=== PATIENT | male | born 1940 | race Caucasian/White ===

== ENCOUNTER 2016-11-03 09:34 | Outpatient (CLI) | payer MEDICARE ==
[2016-11-03 10:51] LABS: ALT (SGPT) 24 U/L (0-55); AST (SGOT) 19 U/L (5-34); Alkaline Phosphatase 96 U/L (40-150); Anion Gap 15 mmol/L (10-20); BUN (Urea Nitrogen) 20 mg/dL (8.4-25.7); Bilirubin, Total 0.7 mg/dL (0.2-1.2); Calc. Creatinine Clearance 0 mL/min (70-130); Calcium 9.4 mg/dL (7.8-10.44); Carbon Dioxide 24 mmol/L (23-31); Chloride 109 mmol/L (98-107); Estimated GFR-MDRD 61; Globulin 2.6 g/dL (2.4-3.5); LDL Cholesterol, Calculated 107 mg/dL; Protein, Total 6.9 g/dL (5.8-8.1)
[2016-11-03 11:22] LABS: #Basophils 0.1 thou/uL (0.0-0.2); #Eosinphils 0.3 thou/uL (0.0-0.7); #Lymphocytes 2.7 thou/uL (1.20-3.40); #Monocytes 0.7 thou/uL (0.11-0.59); #Neutrophils 3.6 thou/uL (1.40-6.50); %Basophils 0.9 % (0.0-1.0); %Monocytes 9.1 % (0.0-10.0); Mean Platelet Volume 6.3 fL (7.4-10.4); Red Blood Cell (RBC) Count 4.73 mill/uL (4.70-6.10); White Blood Cell (WBC) Count 7.4 thou/uL (4.8-10.8)
== END 2016-11-03 09:35 ==
LOC: HPCALD 09:34
PROVIDERS: ATTEND Family Medicine
DX: Z12.5 Encounter for screening for malignant neoplasm of prostate (principal); E78.5 Hyperlipidemia, unspecified; E03.9 Hypothyroidism, unspecified; I10 Essential (primary) hypertension
CPT/HCPCS: 80053; 80061; 84439; 84443; 85025; G0103

== ENCOUNTER 2016-11-03 16:14 | Emergency (ER) | payer MEDICARE ==
[2016-11-03] MEDS ORDERED: Lidocaine 1% 20 ML MDV ONE (17:57)
[2016-11-03] MEDS ORDERED: Triple Antibiotic Oint 1 GM Packet ONE (18:14)
--- NOTE | 2016-11-03 18:45 | ERRECORD ---
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 Bleeding was controlled [employer]. No other injuries noted. HISTORIAN: History provided by patient. MECHANISM OF INJURY: Mechanism of injury: Cut or punctured by. LOCATION: Symptoms are localized, most severe in the dorsal surface of hand, most severe in the first finger, Radiation is not present, Right hand dominant. QUALITY: Pain is sharp in nature, described as shooting. SEVERITY: Maximum severity of symptoms moderate, Currently symptoms are moderate. TIME COURSE: Sudden onset of symptoms, just prior to arrival, There has been no change in the patient's symptoms over time. ASSOCIATED WITH: No associated alcohol use, No associated coolness to touch, No associated distal injury, No associated distal neuro complaint, No associated erythema, No associated fever, Associated with finger pain, Associated with open wounds, No associated proximal injury, No associated tingling, No associated weakness distal to injury, No associated wrist pain, Denies any other complaints. EXACERBATED BY: Patient's condition exacerbated by nothing. RELIEVED BY: Patient's condition relieved by nothing. ROS (ThuNov 04, 2016 07:00 MBRI) CONSTITUTIONAL: Negative constitutional review of systems, Historian denies chills, denies fever. MUSCULOSKELETAL: Injury to the hand. Denies other injuries or problems. SKIN: Negative skin review of systems, Historian denies skin changes. NEUROLOGIC: Negative neurologic review of systems, Historian denies focal weakness, denies sensory changes. HEMO/LYMPHATIC: Historian denies abnormal blood clotting, denies easy bruising. PAST MEDICAL HISTORY (16:49 KMOR) MEDICAL HISTORY: Flu vaccine up to date, Flu vaccine not up to date, Tetanus immunization up to date, Pneumococcal vaccine up to date, Past medical history includes history of hyperlipidemia, high cholesterol, Past medical history includes history of hypertension. Notes: Sleep apnea. head injury July 20, 2012 - in a coma for 14 days. MALE SURGICAL HISTORY: CARPAL TUNNEL may 2010. Surgical history of appendectomy, Surgical history of orthopedic surgery, NECK (2006) SHOUDLER (2006), BACK AND BILATERAL KNEE (2007 and 2008), Surgical history of prostatectomy, Surgical history of tonsillectomy. PSYCHIATRIC HISTORY: No previous psychiatric history, no &a-1R&a+25V*p+0X*[id number]*c152B*c15G*c2P*p-0X&a-25V&a+1RName: Gamaliel Osorio : 1940 M76 MedRec: [id number] AcctNum: [id number] Prepared: ThuNov 04, 2016 09:28 by Interface Page 1 of 3 pMD [facility] EMERGENCY RECORD history of suicidal ideations, No history of suicide attempts, No history of hallucinations, No history of homicidal ideations, No history of violence towards others.. SOCIAL HISTORY: Patient denies alcohol use, Patient denies drug use, Patient has no smoking history. FAMILY HISTORY: Sibling history of cardiac disease:, Treated with a pacemaker. KNOWN ALLERGIES No Known Drug Allergies No Known Drug Intolerances CURRENT MEDICATIONS (17:52 KMOR) gabapentin: CAPSULE : Strength - 300 mg : ORAL Patient Dose: 300 mg Oral 2 times a day. FLUoxetine: CAPSULE : Strength - 20 mg : ORAL Patient Dose: 20 mg Oral once a day (in the morning). simvastatin: TABLET : Strength - 20 mg : ORAL Patient Dose: 20 mg Oral once a day (in the morning). losartan: TABLET : Strength - 25 mg : ORAL Patient Dose: 25 mg Oral once a day (in the morning). Fish Oil: CAPSULE : Strength - 1,000 mg : ORAL Patient Dose: 1000 mg Oral 2 times a day. aspirin: TABLET : Strength - 81 mg : ORAL Patient Dose: 81 mg Oral once a day. Centrum Silver: TABLET : ORAL Patient Dose: 1 tab(s) Oral once a day. magnesium: TABLET : ORAL Patient Dose: 1 tab(s) Oral once a day. pantoprazole: TABLET, DELAYED RELEASE (ENTERIC COATED) : Strength - 40 mg : ORAL Patient Dose: 40 mg Oral As Needed. lutein: CAPSULE : Strength - 6 mg : ORAL Patient Dose: 1 tab(s) Oral once a day. ondansetron: TABLET,DISINTEGRATING : Strength - 4 mg : ORAL Patient Dose: 1 tab(s) Oral every 8 hours PRN. VITAL SIGNS (16:48 KMOR) VITAL SIGNS: BP: 135/65, Pulse: 56, Resp: 18, Temp: 98.2 (Oral), Pain: 0, O2 sat: 94 on Room Air, Time: 11/03/2016 16:48. &a-1R&a+25V*p+0X*[id number]*c152B*c15G*c2P*p-0X&a-25V&a+1RName: Gamaliel Osorio : 1940 M76 MedRec: [id number] AcctNum: [id number] Prepared: ThuNov 04, 2016 09:28 by Interface Page 2 of 3 pMD [facility] EMERGENCY RECORD PHYSICAL EXAM (ThuNov 04, 2016 07:00 MBRI) CONSTITUTIONAL: Vital Signs Reviewed, Nursing notes reviewed. HEAD: Head exam included findings of head atraumatic, normocephalic. UPPER EXTREMITY: Lower extremity range of motion normal, Radial pulse normal, capillary refill less than 2 seconds, distal motor intact, distal sensory intact, no cyanosis, no clubbing, no edema, Upper arm examination normal findings, no abrasions, no deformity, no swelling, Elbow examination normal findings, no deformity, no swelling, no tenderness to palpation, Forearm examination normal findings, no deformity, no swelling, no tenderness to palpation, Wrist examination normal findings, no deformity, no swelling, no tenderness to palpation, Hand examination normal findings, right hand, no deformity, no ecchymosis, stable proximal interphalangeal joint, stable metacarpal phalangeal joint, no swelling, no erythema, no warmth, full range of motion, Hand laceration, left hand, thumb, Avulsion of the medial distal thumb soft tissue. No tissue amenable for repair at this time., 0-1.5cm in length, cutaneous, No foreign body, Not grossly contaminated, Hand tenderness, dorsal, over lac., Tendon function normal, No signs of compartment syndrome. NEURO: Neuro exam findings include patient oriented to person, place and time, Speech normal, Gait normal, no focal motor deficits, no focal sensory deficits. SKIN: Skin exam included findings of skin warm, dry, and normal in color. MEDICATION ADMINISTRATION SUMMARY Drug Name: Triple Antibiotic topical ointment in md, Dose Ordered: 1 units, Route: Topical, Status: Given, Time: 18:20 11/03/2016, Detailed record available in Medication Service section. PROBLEM LIST No recorded problems DIAGNOSIS (18:19 MBRI) FINAL: PRIMARY: Left thumb soft tissue avulsion injury. PRESCRIPTION No recorded prescriptions DISPOSITION PATIENT: Disposition Type: Discharge, Disposition: *Discharge Home, Condition: Good. (18:19 MBRI) Patient left the department. (18:32 KMOR) Callahan: KMOR=FATIMAH Coker, Dorys MBRI=DO Berry Matthew &a-1R&a+25V*p+0X*[id number]*c152B*c15G*c2P*p-0X&a-25V&a+1RName: Gamaliel Osorio : 1940 M76 MedRec: [id number] AcctNum: [id number] Prepared: Chika Nov 04, 2016 09:28 by Interface Page 3 of 3 pMD MTDD
--- NOTE | 2016-11-03 18:46 | PICIS ---
[facility] EMERGENCY RECORD TRIAGE (ThuNov 03, 2016 16:47 KMOR) TRIAGE NOTES: slicing and cut left thumb. (ThuNov 03, 2016 16:47 KMOR) PATIENT: NAME: Gamaliel Osorio, AGE: 76, GENDER: male, : [id number], TIME OF GREET: ThuNov 03, 2016 16:15, PREFERRED LANGUAGE: Icelandic, ETHNICITY: Not or , ECODE BILLING MAP: [facility], SSN: [id number], Zip Code: [address], KG WEIGHT: [phone], PHONE: , , , PERSON ID: [id number], PAYMENT: [employer], PCP: MD Yusuf Kyle. (ThuNov 03, 2016 16:47 KMOR) COMPLAINT: left thumb laceration. (ThuNov 03, 2016 16:47 KMOR) ADMISSION: URGENCY: 4 Non Urgent, ADMISSION SOURCE: Home, TRANSPORT: CAR, BED: WAIT. (ThuNov 03, 2016 16:47 KMOR) ASSESSMENT: Assessment: A&OX4. RR EVEN AND UNLABORED., Symptoms began 2 hours ago. (16:49 KMOR) PAIN: No complaint of pain. (16:49 KMOR) SIRS SCORING: Heart Rate 55-109 (0), Temp range 96.8-101.1 (0), respiratory rate 12-24 (0), Mental Status altered: no (0), Infection or Suspected Infection: No. (16:49 KMOR) TRIAGE SCREENING: Patient denies suicidal ideation, Patient denies presence of domestic violence. (16:49 KMOR) PROVIDERS: TRIAGE NURSE: Dorys Coker RN. (ThuNov 03, 2016 16:47 KMOR) VITAL SIGNS: BP 135/65, Pulse 56, Resp 18, Temp 98.2, (Oral), Pain 0, O2 Sat 94, on Room Air, Time 11/03/2016 16:48. (16:48 KMOR) PREVIOUS VISIT ALLERGIES: No Known Drug Allergies. (ThuNov 03, 2016 16:47 KMOR) No Known Drug Allergies. (16:49 KMOR) KNOWN ALLERGIES No Known Drug Allergies No Known Drug Intolerances CURRENT MEDICATIONS (17:52 KMOR) gabapentin: CAPSULE : Strength - 300 mg : ORAL Patient Dose: 300 mg Oral 2 times a day. FLUoxetine: CAPSULE : Strength - 20 mg : ORAL Patient Dose: 20 mg Oral once a day (in the morning). simvastatin: TABLET : Strength - 20 mg : ORAL Patient Dose: 20 mg Oral once a day (in the morning). losartan: TABLET : Strength - 25 mg : ORAL Patient Dose: 25 mg Oral once a day (in the morning). Fish Oil: CAPSULE : Strength - 1,000 mg : ORAL Patient Dose: 1000 mg Oral 2 times a day. aspirin: TABLET : Strength - 81 mg : ORAL &a-1R&a+25V*p+0X*x1728P*c152B*c15G*c2P*p-0X&a-25V&a+1RName: Gamaliel Osorio : 1940 M76 MedRec: [id number] AcctNum: [id number] Prepared: Chika Nov 04, 2016 09:29 by Interface Page [address] [facility] EMERGENCY RECORD Patient Dose: 81 mg Oral once a day. Centrum Silver: TABLET : ORAL Patient Dose: 1 tab(s) Oral once a day. magnesium: TABLET : ORAL Patient Dose: 1 tab(s) Oral once a day. pantoprazole: TABLET, DELAYED RELEASE (ENTERIC COATED) : Strength - 40 mg : ORAL Patient Dose: 40 mg Oral As Needed. lutein: CAPSULE : Strength - 6 mg : ORAL Patient Dose: 1 tab(s) Oral once a day. ondansetron: TABLET,DISINTEGRATING : Strength - 4 mg : ORAL Patient Dose: 1 tab(s) Oral every 8 hours PRN. VITAL SIGNS (16:48 KMOR) VITAL SIGNS: BP: 135/65, Pulse: 56, Resp: 18, Temp: 98.2 (Oral), Pain: 0, O2 sat: 94 on Room Air, Time: 11/03/2016 16:48. NURSING ASSESSMENT: SKIN (16:50 KMOR) CONSTITUTIONAL: Patient arrives ambulatory, Gait steady, History obtained from patient, Patient appears comfortable, Patient cooperative, Patient alert, Oriented to person, place and time, Skin warm, Skin dry, Skin normal in color, Mucous membranes pink, Mucous membranes moist, Patient is well-groomed, Patient complains of Left thumb laceration, left thumb laceration while at home slicing food. Bleeding controlled. PAIN: Patient rates pain as 0 out of 10. SKIN: Skin assessment findings include skin warm, Skin dry, Skin normal in color, Inspection findings include laceration, to left thumb, length (cm) 4, bleeding controlled, across coburn surface. NOTES: Patient tolerated procedure well. NURSING PROCEDURE: DISCHARGE NOTE (18:34 [facility]) DISCHARGE: Patient discharged to home, ambulating without assistance, family driving, accompanied by other family member, Summary of Care printed/ provided, Patient requested and was provided an electronic copy of Discharge Instructions, Transition record given to patient, Discharge instructions given to patient, Simple or moderate discharge teaching performed, Prescriptions given and instructions on side effects given, Medication reconciliation form given, Above person(s) verbalized understanding of discharge instructions and follow-up care, Patient treated and evaluated by physician. NURSING PROCEDURE: NURSE NOTES NURSES NOTES: Notes: hand cleaned with normal saline in triage and wet to dry dressing placed. Patient tolerated well. &a-1R&a+25V*p+0X*y1452D*c152B*c15G*c2P*p-0X&a-25V&a+1RName: Gamaliel Osorio : 1940 M76 MedRec: [id number] AcctNum: [id number] Prepared: ThuNov 04, 2016 09:29 by Interface Page [address] [facility] EMERGENCY RECORD (17:50 KMOR) Notes: patient taken over to room 5, steady gait, Dressing to left hand clean an dry. (17:52 KMOR) NURSING PROCEDURE: WOUND CARE (18:20 KMOR) PATIENT IDENTIFIER: Patient actively involved in identification process, Patient's identity verified by patient stating name, Patient's identity verified by patient stating date. TIMEOUT: Prior to procedure, correct patient verified by, patient stating name, patient stating date, Correct procedure verified, Correct site verified, Physician performing procedure Dr. Berry, Witnessed by Dorys SHERIDAN. WOUND CARE: Wound care indicated to promote healing, Wound site: left thumb, Wound cleansed with normal saline, by Jamal Hair. FOLLOW-UP: After procedure, simple dressing applied, using kerlex dressing, using telfa pad dressing, thumb guard applied, After procedure, patient is unable to relate pain to scale, After procedure, capillary refill less than 2 seconds, After procedure, distal circulation intact, After procedure, distal motor intact, After procedure, distal sensation intact, After procedure, distal pulses present, Notes: triple antibiotic ointment applied. NOTES: Patient tolerated procedure well. ORDER DETAILS Order Name: chart element #1, Status: Active, Time: 18:20 11/03/2016, User: System, - Ordered for: DO Berry Matthew, - Entered by: FATIMAH Coker Krista - [facility] Nov 03, 2016 18:20, - Quantity: 1, Order Name: chart element #4, Status: Active, Time: 18:20 11/03/2016, User: System, - Ordered for: DO Berry Matthew, - Entered by: FATIMAH Coker Krista - [facility] Nov 03, 2016 18:20, - Quantity: 1. MEDICATION ADMINISTRATION SUMMARY Drug Name: Triple Antibiotic topical ointment in pa, Dose Ordered: 1 units, Route: Topical, Status: Given, Time: 18:20 11/03/2016, Detailed record available in Medication Service section. MEDICATION SERVICE (18:20 [facility]) Triple Antibiotic topical ointment in packet: Order: Triple Antibiotic topical ointment in packet (neomycin sulfate/bacitracin zinc/polymyxin B) - Dose: 1 units : Topical Schedule: Now Ordered by: Kg Berry DO Entered by: Dorys Coker RN ThuNov 03, 2016 18:36 Documented as given by: Dorys Coker RN ThuNov 03, 2016 18:20 Patient, Medication, Dose, Route and Time verified prior to &a-1R&a+25V*p+0X*b5467B*c152B*c15G*c2P*p-0X&a-25V&a+1RName: Gamaliel Osorio : 1940 M76 MedRec: [id number] AcctNum: [id number] Prepared: ThuNov 04, 2016 09:29 by Interface Page [address] [facility] EMERGENCY RECORD administration. Amount given: 1 unit, Skin cleansed prior to administration, Shaving required prior to administration, Correct patient, time, route, dose and medication confirmed prior to administration, Patient advised of actions and side-effects prior to administration, Allergies confirmed and medications reviewed prior to administration, Advised not to ambulate without assistance, Patient in position of comfort, Side rails up, Cart in lowest position, Family at bedside. 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 No other injuries noted. HISTORIAN: History provided by patient. MECHANISM OF INJURY: Mechanism of injury: Cut or punctured by. LOCATION: Symptoms are localized, most severe in the dorsal surface of hand, most severe in the first finger, Radiation is not present, Right hand dominant. QUALITY: Pain is sharp in nature, described as shooting. SEVERITY: Maximum severity of symptoms moderate, Currently symptoms are moderate. TIME COURSE: Sudden onset of symptoms, just prior to arrival, There has been no change in the patient's symptoms over time. ASSOCIATED WITH: No associated alcohol use, No associated coolness to touch, No associated distal injury, No associated distal neuro complaint, No associated erythema, No associated fever, Associated with finger pain, Associated with open wounds, No associated proximal injury, No associated tingling, No associated weakness distal to injury, No associated wrist pain, Denies any other complaints. EXACERBATED BY: Patient's condition exacerbated by nothing. RELIEVED BY: Patient's condition relieved by nothing. ROS (ThuNov 04, 2016 07:00 [facility]) CONSTITUTIONAL: Negative constitutional review of systems, Historian denies chills, denies fever. MUSCULOSKELETAL: Injury to the hand. Denies other injuries or problems. SKIN: Negative skin review of systems, Historian denies skin changes. NEUROLOGIC: Negative neurologic review of systems, Historian denies focal weakness, denies sensory changes. HEMO/LYMPHATIC: Historian denies abnormal blood clotting, denies easy bruising. PAST MEDICAL HISTORY (16:49 KMOR) MEDICAL HISTORY: Flu vaccine up to date, Flu vaccine not up to date, Tetanus immunization up to date, Pneumococcal vaccine up to date, Past medical history includes history of hyperlipidemia, high &a-1R&a+25V*p+0X*h9886C*c152B*c15G*c2P*p-0X&a-25V&a+1RName: Gamaliel Osorio : 1940 M76 MedRec: [id number] AcctNum: [id number] Prepared: ThuNov 04, 2016 09:29 by Interface Page [address] [facility] EMERGENCY RECORD cholesterol, Past medical history includes history of hypertension. Notes: Sleep apnea. head injury July 20, 2012 - in a coma for 14 days. MALE SURGICAL HISTORY: CARPAL TUNNEL may 2010. Surgical history of appendectomy, Surgical history of orthopedic surgery, NECK (2006) SHOUDLER (2006), BACK AND BILATERAL KNEE (2007 and 2008), Surgical history of prostatectomy, Surgical history of tonsillectomy. PSYCHIATRIC HISTORY: No previous psychiatric history, no history of suicidal ideations, No history of suicide attempts, No history of hallucinations, No history of homicidal ideations, No history of violence towards others.. SOCIAL HISTORY: Patient denies alcohol use, Patient denies drug use, Patient has no smoking history. FAMILY HISTORY: Sibling history of cardiac disease:, Treated with a pacemaker. PHYSICAL EXAM (ThuNov 04, 2016 07:00 [facility]) CONSTITUTIONAL: Vital Signs Reviewed, Nursing notes reviewed. HEAD: Head exam included findings of head atraumatic, normocephalic. UPPER EXTREMITY: Lower extremity range of motion normal, Radial pulse normal, capillary refill less than 2 seconds, distal motor intact, distal sensory intact, no cyanosis, no clubbing, no edema, Upper arm examination normal findings, no abrasions, no deformity, no swelling, Elbow examination normal findings, no deformity, no swelling, no tenderness to palpation, Forearm examination normal findings, no deformity, no swelling, no tenderness to palpation, Wrist examination normal findings, no deformity, no swelling, no tenderness to palpation, Hand examination normal findings, right hand, no deformity, no ecchymosis, stable proximal interphalangeal joint, stable metacarpal phalangeal joint, no swelling, no erythema, no warmth, full range of motion, Hand laceration, left hand, thumb, Avulsion of the medial distal thumb soft tissue. No tissue amenable for repair at this time., 0-1.5cm in length, cutaneous, No foreign body, Not grossly contaminated, Hand tenderness, dorsal, over lac., Tendon function normal, No signs of compartment syndrome. NEURO: Neuro exam findings include patient oriented to person, place and time, Speech normal, Gait normal, no focal motor deficits, no focal sensory deficits. SKIN: Skin exam included findings of skin warm, dry, and normal in color. EVENTS TRANSFER: Triage to Emergency Waiting. (ThuNov 03, 2016 16:47 KMOR) Emergency Waiting to Emergency Room -05. (17:50 [facility]) Removed from Emergency Emergency Room -05. (18:32 KMOR) &a-1R&a+25V*p+0X*d1716I*c152B*c15G*c2P*p-0X&a-25V&a+1RName: Gamaliel Osorio : 1940 M76 MedRec: [id number] AcctNum: [id number] Prepared: ThuNov 04, 2016 09:29 by Interface Page [address] [facility] EMERGENCY RECORD O2SAT INTERPRETATION (ThuNov 04, 2016 06:55 [facility]) O2SAT: Oxygen saturation interpretation: Normal. LACERATION-SINGLE REPAIR (ThuNov 04, 2016 07:00 [facility]) LACERATION REPAIR: Side and/or site verified, Patient identification confirmed, Sterile procedures observed, Verbal consent obtained, No contamination, Deep structures not involved, no bony deformity, no edema, no ecchymosis, no tendon involvement, no joint involvement, Wound not near a neurovascular bundle, No pulse deficit, Capillary refill less than 2 seconds, Distal motor intact, Distal sensation intact, No signs of compartment syndrome, Local infiltration with, 1% LIDOCAINE without epinephrine, 4mL, Simple repair of laceration, to the hand, 1.5 cm superficial lac, total length 1.5 cm, Skin layer closed, using 5.0, prolene suture, 3 sutures, interrupted, After procedure, wound well approximated, antibiotic ointment applied, dressing applied, No complications, Tetanus status not up to date, tetanus immunization ordered, Patient tolerated the procedure well, No foreign body present. PROBLEM LIST No recorded problems DIAGNOSIS (18:19 [facility]) FINAL: PRIMARY: Left thumb soft tissue avulsion injury. DISPOSITION PATIENT: Disposition Type: Discharge, Disposition: *Discharge Home, Condition: Good. (18:19 [facility]) Patient left the department. (18:32 KMOR) INSTRUCTION (18:20 [facility]) DISCHARGE: SKIN AVULSION. FOLLOWUP: [facility] [address] [place] [address], , Follow up with Primary Care Physician as needed. SPECIAL: Please return for any further issues or concerns, we would be happy to see you. We hope you feel better soon. Follow-up with your primary physician as needed. PRESCRIPTION No recorded prescriptions IMAGING (18:36 KMOR) *DISCHARGE INSTRUCTIONS RECEIPT: Image captured from scanner. *SUPPLY CHARGE SHEET: Image captured from scanner. ADMIN DIGITAL SIGNATURE: FATIMAH Coker, Dorys. (18:38 KMOR) DO Berry Matthew. (ThuNov 04, 2016 09:22 [facility]) &a-1R&a+25V*p+0X*o8961T*c152B*c15G*c2P*p-0X&a-25V&a+1RName: Gamaliel Osorio : 1940 76 MedRec: [id number] AcctNum: [id number] Prepared: ThuNov 04, 2016 09:29 by Interface Page [address] [facility] EMERGENCY RECORD Callahan: NICMI=FATIMAH Mckeon, Maryan KMOR=FATIMAH Coker Krista [facility]=DO Berry Matthew &a-1R&a+25V*p+0X*t7420V*c152B*c15G*c2P*p-0X&a-25V&a+1RName: Gamaliel Osorio : 1940 76 MedRec: [id number] AcctNum: [id number] Prepared: ThuNov 04, 2016 09:29 by Interface Page [address] [facility] MEDICATION RECONCILIATION You were seen in the Emergency Department on: ThuNov 03, 2016 KNOWN ALLERGIES No Known Drug Allergies No Known Drug Intolerances MEDICATIONS GIVEN WHILE IN THE EMERGENCY DEPARTMENT Triple Antibiotic topical ointment in packet (neomycin sulfate/bacitracin zinc/polymyxin B) - Dose: 1 unit(s) : Topical HOME MEDICATIONS CONTINUE PRESCRIBED aspirin : TABLET : Strength - 81 mg : ORAL Continue as prescribed Patient had been takin mg Oral once a day. Centrum Silver : TABLET : ORAL Continue as prescribed Patient had been takin tab(s) Oral once a day. Fish Oil : CAPSULE : Strength - 1,000 mg : ORAL Continue as prescribed Patient had been takin mg Oral 2 times a day. FLUoxetine : CAPSULE : Strength - 20 mg : ORAL Continue as prescribed Patient had been takin mg Oral once a day (in the morning). gabapentin : CAPSULE : Strength - 300 mg : ORAL Continue as prescribed Patient had been takin mg Oral 2 times a day. losartan : TABLET : Strength - 25 mg : ORAL Continue as prescribed Patient had been takin mg Oral once a day (in the morning). lutein : CAPSULE : Strength - 6 mg : ORAL Continue as prescribed Patient had been takin tab(s) Oral once a day. magnesium : TABLET : ORAL Continue as prescribed Patient had been takin tab(s) Oral once a day. &a-1R&a+25V*p+0X*i1175A*c202B*c15G*c2P*p-0X&a-25V&a+1R Name: Gamaliel Osorio : 1940 M76 MedRec: [id number] AcctNum: [id number] Prepared: ThuNov 04, 2016 09:[address] [facility] MEDICATION RECONCILIATION ondansetron : TABLET,DISINTEGRATING : Strength - 4 mg : ORAL Continue as prescribed Patient had been takin tab(s) Oral every 8 hours PRN. pantoprazole : TABLET, DELAYED RELEASE (ENTERIC COATED) : Strength - 40 mg : ORAL Continue as prescribed Patient had been takin mg Oral As Needed. simvastatin : TABLET : Strength - 20 mg : ORAL Continue as prescribed Patient had been takin mg Oral once a day (in the morning). Notes from the emergency department Reviewed with family Reviewed with patient &a-1R&a+25V*p+0X*s8015W*c202B*c15G*c2P*p-0X&a-25V&a+1R Name: Gamaliel Osorio : 1940 M76 MedRec: [id number] AcctNum: [id number] Prepared: Chika Nov 04, 2016 09:29 by Interface Dian WEBSTER
== END 2016-11-03 18:30 | disposition home or self-care (01) ==
LOC: BURERS 16:14
DX: S61.012A Laceration without foreign body of left thumb without damage to nail, initial encounter (principal); E78.5 Hyperlipidemia, unspecified; E78.00 Pure hypercholesterolemia, unspecified; I10 Essential (primary) hypertension; Z79.82 Long term (current) use of aspirin; Z79.899 Other long term (current) drug therapy; W45.8XXA Other foreign body or object entering through skin, initial encounter
CPT/HCPCS: 12001; J2001

== ENCOUNTER 2017-01-27 09:43 | Outpatient (CLI) | payer MEDICARE | END 2017-01-27 09:44 | disposition home or self-care (01) | LOC: HPCALD 09:43 | PROVIDERS: ATTEND Family Medicine | DX: E29.1 Testicular hypofunction (principal) | CPT/HCPCS: 36415; 84403 ==

== ENCOUNTER 2017-10-12 10:31 | Emergency (ER) | payer MEDICARE ==
--- NOTE | 2017-10-12 13:35 | RAD ---
LUMBAR SPINE 3 VIEWS: Date: 10/12/17 Comparison is made with the 07/20/12 study. FINDINGS: The patient has had a prior fusion posteriorly at L5-S1 with pedicle screws and a disc spacer. There is no adverse change in the appearance of the fusion over time. No new fracture was seen. Anter ior osteophytes are seen at the L2 through L4 levels. Some are also noted in the lower thoracic regio n. The SI joints are symmetrical. A large amount of fecal material is seen in the colon. IMPRESSION: No acute traumatic changes. POS: HOME
== END 2017-10-12 11:25 | disposition home or self-care (01) ==
LOC: BURERS 10:31
DX: M54.5 Low back pain (principal); E78.5 Hyperlipidemia, unspecified; G47.30 Sleep apnea, unspecified; I10 Essential (primary) hypertension; K21.9 Gastro-esophageal reflux disease without esophagitis; Z79.82 Long term (current) use of aspirin; Z79.899 Other long term (current) drug therapy; W18.30XA Fall on same level, unspecified, initial encounter
CPT/HCPCS: 72100

== ENCOUNTER 2018-01-03 17:44 | Emergency (ER) | payer MEDICARE ==
[2018-01-03] MEDS ORDERED: Ketorolac Tromethamine 60 MG/2 ML VIAL ONE (18:15)
== END 2018-01-03 18:36 | disposition home or self-care (01) ==
LOC: BURERS 17:44
DX: M54.5 Low back pain (principal); E78.5 Hyperlipidemia, unspecified; I10 Essential (primary) hypertension; G47.30 Sleep apnea, unspecified; K21.9 Gastro-esophageal reflux disease without esophagitis; Z79.899 Other long term (current) drug therapy; Z79.82 Long term (current) use of aspirin
CPT/HCPCS: 96372; J1885

== ENCOUNTER 2018-03-27 18:25 | Emergency (ER) | payer MEDICARE | END 2018-03-27 18:55 | disposition home or self-care (01) | LOC: BURERS 18:25 | DX: K11.5 Sialolithiasis (principal); E78.5 Hyperlipidemia, unspecified; I10 Essential (primary) hypertension; G47.30 Sleep apnea, unspecified; F32.9 Major depressive disorder, single episode, unspecified; K21.9 Gastro-esophageal reflux disease without esophagitis; Z79.82 Long term (current) use of aspirin; Z79.899 Other long term (current) drug therapy | CPT/HCPCS: 99283 ==

== ENCOUNTER 2019-04-09 14:04 | Emergency (ER) | payer MEDICARE ==
[2019-04-09] MEDS ORDERED: Acetaminophen 325 MG TAB ONE (14:34)
[2019-04-09] MEDS ORDERED: traMADol HCl 50 MG TAB ONE (14:34)
== END 2019-04-09 14:42 | disposition home or self-care (01) ==
LOC: BURERS 14:04
DX: G62.9 Polyneuropathy, unspecified (principal); F32.9 Major depressive disorder, single episode, unspecified; I10 Essential (primary) hypertension; E78.5 Hyperlipidemia, unspecified; Z79.899 Other long term (current) drug therapy; Z79.82 Long term (current) use of aspirin
CPT/HCPCS: 99283

== ENCOUNTER 2019-07-11 02:10 | Emergency (ER) | payer MEDICARE | END 2019-07-11 02:40 | disposition home or self-care (01) | LOC: BURERS 02:10 | DX: K64.5 Perianal venous thrombosis (principal); E78.5 Hyperlipidemia, unspecified; I10 Essential (primary) hypertension; F32.9 Major depressive disorder, single episode, unspecified; Z79.899 Other long term (current) drug therapy; Z79.82 Long term (current) use of aspirin; Z79.891 Long term (current) use of opiate analgesic | CPT/HCPCS: 99282 ==

== ENCOUNTER 2020-05-07 10:31 | Emergency (ER) | payer MEDICARE ==
[2020-05-07] MEDS ORDERED: Aspirin Chewable 81 MG TAB ONE (10:40)
[2020-05-07] MEDS ORDERED: Nitroglycerin 0.4 MG TAB 1 EACH ONE (10:40)
[2020-05-07 11:06] LABS: #Basophils 0.1 thou/uL (0.0-0.2); #Eosinphils 0.2 thou/uL (0.0-0.7); #Monocytes 0.8 thou/uL (0.11-0.59); #Neutrophils 4.7 thou/uL (1.40-6.50); %Basophils 1.3 % (0.0-1.0); %Eosinophils 2.9 % (0.0-10.0); %Lymphocytes 25.7 % (21.0-51.0); %Monocytes 9.9 % (0.0-10.0); %Neutrophils 60.2 % (42.0-75.0); Hemoglobin 11.4 g/dL (14.0-18.0); Mean Corpuscular HGB CONC 32.2 g/dL (32.0-36.0); Mean Corpuscular Hemoglobin 31.3 pg (27.0-31.0); Mean Corpuscular Volume 97.2 fL (78.0-98.0); Platelet Count 178 thou/uL (130-400); Red Blood Cell (RBC) Count 3.64 mill/uL (4.70-6.10); White Blood Cell (WBC) Count 7.8 thou/uL (4.8-10.8)
--- NOTE | 2020-05-07 11:14 | RAD ---
Exam: Chest one view HISTORY:Chest pain. Comparison: 03/10/2017 FINDINGS: Cardiac silhouette:Normal cardiac silhouette. Stable dual lead left-sided transvenous pacemaker Aorta: Unremarkable Pulmonary vessels: Normal Costophrenic angles: Clear LUNGS: Chronic lung parenchymal changes. Stable hyperinflation. Pneumothorax: None Osseous abnormalities: None IMPRESSION: No acute cardiopulmonary process.
[2020-05-07 11:17] LABS: ALT (SGPT) 14 U/L (8-55); AST (SGOT) 16 U/L (5-34); Alkaline Phosphatase 95 U/L (40-110); Anion Gap 15 mmol/L (10-20); BUN (Urea Nitrogen) 21 mg/dL (8.4-25.7); Bilirubin, Total 0.5 mg/dL (0.2-1.2); Calc. Creatinine Clearance 0 mL/min (70-130); Calcium 8.6 mg/dL (7.8-10.44); Carbon Dioxide 20 mmol/L (23-31); Chloride 112 mmol/L (98-107); Estimated GFR-MDRD 61; Globulin 2.7 g/dL (2.4-3.5); Glucose 92 mg/dL (83-110); Potassium 4.5 mmol/L (3.5-5.1); Protein, Total 6.7 g/dL (5.8-8.1); Sodium 142 mmol/L (136-145)
== END 2020-05-07 12:55 | disposition short-term general hospital (02) ==
LOC: BURERS 10:31
DX: I25.10 Atherosclerotic heart disease of native coronary artery without angina pectoris (principal); E78.5 Hyperlipidemia, unspecified; E78.00 Pure hypercholesterolemia, unspecified; I10 Essential (primary) hypertension; F32.9 Major depressive disorder, single episode, unspecified; Z95.0 Presence of cardiac pacemaker; Z79.82 Long term (current) use of aspirin; Z79.899 Other long term (current) drug therapy
CPT/HCPCS: 71045; 80053; 83880; 84484; 85025; 93005

== ENCOUNTER 2020-11-10 10:04 | Emergency (ER) | payer MEDICARE, OTHER | END 2020-11-10 11:33 | disposition home or self-care (01) | LOC: BURERS 10:04 | DX: S80.01XA Contusion of right knee, initial encounter (principal); S30.0XXA Contusion of lower back and pelvis, initial encounter; E78.5 Hyperlipidemia, unspecified; E78.00 Pure hypercholesterolemia, unspecified; I10 Essential (primary) hypertension; Z79.84 Long term (current) use of oral hypoglycemic drugs; Z79.82 Long term (current) use of aspirin; Z79.899 Other long term (current) drug therapy; W18.30XA Fall on same level, unspecified, initial encounter; Y92.009 Unspecified place in unspecified non-institutional (private) residence as the place of occurrence of the external cause | CPT/HCPCS: 72100 ==

== ENCOUNTER 2022-09-28 18:49 | Emergency (ER) | payer MEDICARE ==
[2022-09-28 19:31] LABS: #Basophils 0.1 thou/uL (0.0-0.2); #Eosinphils 0.2 thou/uL (0.0-0.7); #Lymphocytes 1.8 thou/uL (1.20-3.40); #Monocytes 0.6 thou/uL (0.11-0.59); #Neutrophils 3.9 thou/uL (1.40-6.50); %Basophils 0.8 % (0.0-1.0); %Eosinophils 2.5 % (0.0-10.0); %Lymphocytes 27.9 % (21.0-51.0); %Monocytes 9.5 % (0.0-10.0); %Neutrophils 59.3 % (42.0-75.0); Hemoglobin 12.5 g/dL (14.0-18.0); Mean Corpuscular HGB CONC 35.4 g/dL (32.0-36.0); Mean Corpuscular Hemoglobin 34.9 pg (27.0-31.0); Mean Corpuscular Volume 98.5 fl (78.0-98.0); Mean Platelet Volume 6.9 fL (7.4-10.4); Platelet Count 224 10x3/uL (130-400); RBC Distribution Width 11.9 % (11.5-14.5); Red Blood Cell (RBC) Count 3.58 mill/uL (4.70-6.10); White Blood Cell (WBC) Count 6.5 10x3/uL (4.8-10.8)
[2022-09-28 19:32] LABS: Platelet Morphology Comment Appears Adequate; RBC Morphology Normal
[2022-09-28 19:40] LABS: ALT (SGPT) 20 U/L (8-55); AST (SGOT) 21 U/L (5-34); Albumin 4.3 g/dL (3.4-4.8); Alkaline Phosphatase 155 U/L (40-110); Anion Gap 16 mmol/L (10-20); BUN (Urea Nitrogen) 19 mg/dL (8.4-25.7); Bilirubin, Total 0.5 mg/dL (0.2-1.2); Calc. Creatinine Clearance 0 mL/min (70-130); Calcium 9.8 mg/dL (7.8-10.44); Carbon Dioxide 25 mmol/L (23-31); Chloride 105 mmol/L (98-107); Estimated GFR 65; Globulin 3.6 g/dL (2.4-3.5); Glucose 84 mg/dL (83-110); Potassium 4.6 mmol/L (3.5-5.1); Protein, Total 7.9 g/dL (5.8-8.1); Sodium 141 mmol/L (136-145)
[2022-09-28 20:00] LABS: SARS-CoV-2 NAA Rapid Test Not Detected (NotDetected)
[2022-09-28] MEDS ORDERED: methylPREDNISolone Sod Succ/PF 125 MG/2 ML VIAL ONE (20:26)
[2022-09-28] MEDS ORDERED: Meclizine HCl 25 MG TAB ONE (20:26)
[2022-09-28] MEDS ORDERED: AMOXicillin 250 MG CAP ONE (20:26)
[2022-09-28] MEDS ORDERED: AMOXicillin 250 MG CAP PO SCH (21:00)
== END 2022-09-28 20:54 | disposition home or self-care (01) ==
LOC: BURERS 18:49
DX: J01.90 Acute sinusitis, unspecified (principal); E78.00 Pure hypercholesterolemia, unspecified; I10 Essential (primary) hypertension; Z20.822 Contact with and (suspected) exposure to COVID-19; Z79.82 Long term (current) use of aspirin; Z79.899 Other long term (current) drug therapy
CPT/HCPCS: 70450; 80053; 84484; 85025; 87804; 96374; J2930; U0002

== ENCOUNTER 2022-10-12 17:48 | Emergency (ER) | payer MEDICARE ==
[2022-10-12] MEDS ORDERED: Boostrix 0.5 ML (Tdap) VIAL (>/=7 yrs of age) ONE (18:00)
[2022-10-12] MEDS ORDERED: Bacitracin 1 PK ONE (18:13)
== END 2022-10-12 18:22 | disposition home or self-care (01) ==
LOC: BURERS 17:48
DX: S61.511A Laceration without foreign body of right wrist, initial encounter (principal); E78.00 Pure hypercholesterolemia, unspecified; I10 Essential (primary) hypertension; X58.XXXA Exposure to other specified factors, initial encounter
CPT/HCPCS: 12001; 90471; 90715

== ENCOUNTER 2023-02-02 16:09 | Emergency (ER) | payer MEDICARE ==
[2023-02-02 16:53] LABS: #Basophils 0.1 thou/uL (0.0-0.2); #Eosinphils 0.1 thou/uL (0.0-0.7); #Lymphocytes 1.4 thou/uL (1.20-3.40); #Monocytes 0.6 thou/uL (0.11-0.59); #Neutrophils 2.4 thou/uL (1.40-6.50); %Basophils 1.1 % (0.0-1.0); %Eosinophils 2.5 % (0.0-10.0); %Lymphocytes 30.2 % (21.0-51.0); %Monocytes 12.7 % (0.0-10.0); %Neutrophils 53.5 % (42.0-75.0); Hemoglobin 11.2 g/dL (14.0-18.0); Mean Corpuscular HGB CONC 33.9 g/dL (32.0-36.0); Mean Corpuscular Hemoglobin 34.3 pg (27.0-31.0); Mean Platelet Volume 7.9 fL (7.4-10.4); Platelet Count 156 10x3/uL (130-400); RBC Distribution Width 11.2 % (11.5-14.5); Red Blood Cell (RBC) Count 3.26 mill/uL (4.70-6.10); White Blood Cell (WBC) Count 4.6 10x3/uL (4.8-10.8)
[2023-02-02 16:54] LABS: MDiff Complete? YES
[2023-02-02 16:58] LABS: PTT 30.6 sec (22.9-36.1)
[2023-02-02 17:06] LABS: ALT (SGPT) 13 U/L (8-55); AST (SGOT) 15 U/L (5-34); Albumin 3.8 g/dL (3.4-4.8); Alkaline Phosphatase 103 U/L (40-110); Anion Gap 13 mmol/L (10-20); BUN (Urea Nitrogen) 16 mg/dL (8.4-25.7); Bilirubin, Total 0.6 mg/dL (0.2-1.2); Calc. Creatinine Clearance 0 mL/min (70-130); Calcium 8.7 mg/dL (7.8-10.44); Carbon Dioxide 23 mmol/L (23-31); Chloride 108 mmol/L (98-107); Estimated GFR 57; Globulin 2.9 g/dL (2.4-3.5); Glucose 98 mg/dL (83-110); Potassium 4.8 mmol/L (3.5-5.1); Protein, Total 6.7 g/dL (5.8-8.1); Sodium 139 mmol/L (136-145)
[2023-02-02] MEDS ORDERED: Aspirin 325 MG TAB ONE (18:42)
== END 2023-02-02 20:54 | disposition short-term general hospital (02) ==
LOC: BURERS 16:09
DX: R42 Dizziness and giddiness (principal); I10 Essential (primary) hypertension; Z95.0 Presence of cardiac pacemaker; Z79.899 Other long term (current) drug therapy
CPT/HCPCS: 70450; 71045; 80053; 84484; 85025; 85610; 85730; 93005; 94760; 96360